=== PATIENT | female | born 1995 ===

== ENCOUNTER 2020-06-29 10:05 | Emergency (ER) | payer SELFPAY ==
[2020-06-29 10:43] VITALS: BP 136/94
--- NOTE | 2020-06-29 10:51 | Emergency Department Report ---
ED Female HPI - General Chief complaint: Urogenital-Female Stated complaint: VAGINAL PAIN DAYS Time Seen by Provider: 06/29/20 10:34 Source: patient Mode of arrival: Ambulatory Limitations: No Limitations - History of Present Illness Initial comments: 25-year-old female presents to the ER today with complaints of vaginal pain. Patient states that started 3 days ago. She states that it started itching mildly initially but has since become painful. She denies any vaginal rash or swelling. She denies any vaginal discharge. She denies any abnormal vaginal bleeding. She denies any UTI symptoms. She states that her last menstrual cycle was June 18, 2020. She states that she has had the same sexual partner with unprotected sexual intercourse. She denies any associated abdominal pain, back pain, nausea vomiting and she has been having normal bowel movements. MD Complaint: other (vaginal pain) -: Gradual (3 days ) - Related Data Previous Rx's Medication Instructions Recorded Last Taken Type Ibuprofen [Ibuprofen 800] 800 mg PO TID PRN #30 tablet 03/22/18 Unknown Rx Ketoconazole [Nizoral] 1 applicatio TP 3XW 14 Days #120 ml 03/22/18 Unknown Rx Sulfamethoxazole/Trimethoprim 1 each PO BID 10 Days #20 tablet 03/22/18 Unknown Rx [Bactrim DS TAB] Doxycycline Hyclate 100 mg PO BID #14 tablet. 06/29/20 Unknown Rx Valacyclovir HCl [Valtrex] 1,000 mg PO BID #14 tablet 06/29/20 Unknown Rx metroNIDAZOLE [Metrocream 0.75% 1 applicatio TP QHS 5 Days #5 06/29/20 Unknown Rx TOPICAL] cream..g. Allergies Allergy/AdvReac Type Severity Reaction Status Date / Time No Known Allergies Allergy Unverified 03/22/18 22:39 ED Review of Systems ROS: Stated complaint: VAGINAL PAIN DAYS Other details as noted in HPI Comment: All other systems reviewed and negative Gastrointestinal: denies: abdominal pain, nausea, vomiting, diarrhea, constipation, hematemesis, melena, hematochezia Genitourinary: other (Vaginal pain). denies: urgency, dysuria, frequency, hematuria, discharge, abnormal menses, dyspareunia Skin: denies: rash, lesions Neurological: denies: headache, weakness, paresthesias ED Past Medical Hx - Past Medical History Previous Medical History?: No - Surgical History Past Surgical History?: No - Social History Smoking Status: Never Smoker Substance Use Type: None - Medications Home Medications: Home Medications Medication Instructions Recorded Confirmed Last Taken Type Ibuprofen [Ibuprofen 800] 800 mg PO TID PRN #30 tablet 03/22/18 Unknown Rx Ketoconazole [Nizoral] 1 applicatio TP 3XW 14 Days #120 ml 03/22/18 Unknown Rx Sulfamethoxazole/Trimethoprim 1 each PO BID 10 Days #20 tablet 03/22/18 Unknown Rx [Bactrim DS TAB] Doxycycline Hyclate 100 mg PO BID #14 tablet. 06/29/20 Unknown Rx Valacyclovir HCl [Valtrex] 1,000 mg PO BID #14 tablet 06/29/20 Unknown Rx metroNIDAZOLE [Metrocream 0.75% 1 applicatio TP QHS 5 Days #5 06/29/20 Unknown Rx TOPICAL] cream..g. ED Physical Exam - General Limitations: No Limitations General appearance: alert, in no apparent distress - Head Head exam: Present: atraumatic, normocephalic, normal inspection - ENT ENT exam: Present: normal exam, mucous membranes moist - Respiratory Respiratory exam: Absent: respiratory distress - Cardiovascular Cardiovascular Exam: Present: regular rate - GI/Abdominal GI/Abdominal exam: Present: soft. Absent: distended, tenderness, guarding, rebound - External exam: Present: lesions (Single very shallow ulcerated tender area noted just at opening of introitus on right) Speculum exam: Present: vaginal discharge (small amt of white/yellow d/c). Absent: erythema, cervical discharge, vaginal bleeding, foreign body Bi-manual exam: Present: normal bi-manual exam - Neurological Exam Neurological exam: Present: alert, oriented X3, CN II-XII intact, normal gait - Psychiatric Psychiatric exam: Present: normal affect, normal mood - Skin Skin exam: Present: intact ED Course Vital Signs 06/29/20 10:40 Temperature 98.7 F Pulse Rate 61 Respiratory 16 Rate Blood Pressure 136/94 O2 Sat by Pulse 94 Oximetry ED Medical Decision Making - Medical Decision Making 25-year-old female presents to the ER today with complaints of vaginal pain. Patient states that started 3 days ago. She states that it started itching mildly initially but has since become painful. She denies any vaginal rash or swelling. She denies any vaginal discharge. She denies any abnormal vaginal bleeding. She denies any UTI symptoms. She states that her last menstrual cycle was June 18, 2020. She states that she has had the same sexual partner with unprotected sexual intercourse. She denies any associated abdominal pain, back pain, nausea vomiting and she has been having normal bowel movements. Urinalysis concerning for UTI. Urine culture is pending. Wet prep is positive for bacterial vaginosis but negative for yeast and trichomonas. On pelvic exam patient does have a single superficial small shallow ulcerated area just anterior to the introitus on the right. It is painful. No other ulceration observed on exam. Discussed differential diagnosis of what this could be with patient --genital herpes which is atypical presentation, versus syphilis versus irritation/abrasion. I did recommend that she follow-up with her [facility] [employer] [facility] for lab testing for HSV and syphilis as well as for other STDs like HIV and hepatitis. She will be treated prophylactically for gonorrhea, chlamydia as well as herpes. No evidence of PID or concerns for tubo-ovarian abscess or any other emergent conditions at this time. Patient is well-appearing, not toxic and is not in any acute distress. Her vital signs have been stable. Patient expressed understanding of structures and agree with plan. Patient stable at time of discharge. Critical care attestation.: If time is entered above; I have spent that time in minutes in the direct care of this critically ill patient, excluding procedure time. ED Disposition Clinical Impression: Bacterial vaginosis, UTI (urinary tract infection), Vaginal lesion Disposition: [id number] TO HOME OR SELFCARE Is pt being admited?: No Does the pt Need Aspirin: No Condition: Stable Instructions: Bacterial Vaginosis (ED) Additional Instructions: Take the doxycycline, and the Valtrex as prescribed. Use the metronidazole gel as instructed. I recommend that you follow-up with your [facility] [employer] [facility] for further evaluation and lab work for HSV and syphilis as well as hepatitis and HIV. I recommend no sexual activity for the next 7 days. Return to the ER if your symptoms changes or worsens in any way. Prescriptions: metroNIDAZOLE [Metrocream 0.75% TOPICAL] 1 applicatio TP QHS 5 Days #5 cream..g. Doxycycline Hyclate 100 mg PO BID #14 tablet. Valacyclovir HCl [Valtrex] 1,000 mg PO BID #14 tablet Referrals: PRIMARY CARE [Primary Care Provider] - 3-5 Days Forms: STI Treatment and Prevention Time of Disposition: 12:27
[2020-06-29] MEDS ORDERED: LIDOCAINE-MPF (1%) 10 MG/1 ML VIAL 5 ML INFILTRATI ONE (11:38)
[2020-06-29 11:45] LABS: HCG Qualitative,Urine Negative (Negative)
[2020-06-29 11:47] LABS: Bilirubin,Urine NEG (Negative); Blood,Urine NEG (Negative); Color,Urine Yellow (Yellow); Mucus,Urine 2+ /HPF; Protein,Urine <15 mg/dL mg/dL (Negative); Urobilinogen,Urine < 2.0 mg/dL (<2.0)
== END 2020-06-29 12:45 | disposition home or self-care (01) ==
LOC: ED 10:05
DX: N39.0 Urinary tract infection, site not specified (principal); N76.0 Acute vaginitis; Z79.899 Other long term (current) drug therapy
CPT/HCPCS: 81001; 81025; 87086; 87210; 87591; 96372; 99284; J0696; 87076; 87186